=== PATIENT | male | born 1990 | race Caucasian/White ===

== ENCOUNTER 2017-05-26 04:18 | Emergency (ER) | payer SELFPAY ==
[~2017-05-26] VITALS: Ht 180.3 cm; Wt 74.8 kg
[~2017-05-26 04:18] MED LIST: IBU800 M1 PO; VIBRAMYCIN100 MG PO; ZOFRAN ODT4 MG SL
[2017-05-26] MEDS ORDERED: CLINDAMYCIN HC300 MG PO (04:46)
[2017-05-26] MEDS ORDERED: Motrin,Rufen800 MG PO (04:46)
== END 2017-05-26 05:14 | disposition home or self-care (01) ==
LOC: ED 04:18
DX: K02.9 Dental caries, unspecified (principal); K04.01 Reversible pulpitis; Z79.899 Other long term (current) drug therapy

== ENCOUNTER 2017-12-28 15:00 | Emergency (ER) | payer SELFPAY ==
[~2017-12-28] VITALS: Ht 182.8 cm; Wt 81.6 kg
[~2017-12-28 15:00] MED LIST changes: +CLINDAMYCIN HC300 MG PO; +Motrin,Rufen800 MG PO
[2017-12-28] MEDS ORDERED: CLINDAMYCIN HC300 MG PO (15:22)
[2017-12-28] MEDS ORDERED: NAPROSYN500 MG PO (15:24)
== END 2017-12-28 15:33 | disposition home or self-care (01) ==
LOC: ED 15:00
DX: K02.9 Dental caries, unspecified (principal); Z79.1 Long term (current) use of non-steroidal anti-inflammatories (NSAID)

== ENCOUNTER 2019-02-18 19:49 | Emergency (ER) | payer SELFPAY ==
[~2019-02-18] VITALS: Ht 180.3 cm; Wt 72.6 kg
[~2019-02-18 19:49] MED LIST changes: +NAPROSYN500 MG PO
[2019-02-18] MEDS ORDERED: CLINDAMYCIN HC300 MG PO (22:27)
[2019-02-18] MEDS ORDERED: KETOROLAC10 MG PO (22:27)
== END 2019-02-18 22:38 | disposition home or self-care (01) ==
LOC: ED 19:49
DX: K12.2 Cellulitis and abscess of mouth (principal); K08.89 Other specified disorders of teeth and supporting structures; Z79.899 Other long term (current) drug therapy; Z79.2 Long term (current) use of antibiotics

== ENCOUNTER 2024-05-01 17:06 | Inpatient (IN) | payer MEDICAID ==
[~2024-05-01] VITALS: Ht 180.3 cm; Wt 58.6 kg
[~2024-05-01 17:06] MED LIST changes: +KETOROLAC10 MG PO
[2024-05-01 17:23] VITALS: BP 134/81
[2024-05-01 17:50] LABS: BASO # 0.3 10*3/uL (0.0-0.1); BASO % 2.4 % (0.0-1.0); EOS # 1.6 10*3/uL (0.0-0.4); EOS % 13.5 % (1.0-4.0); HEMATOCRIT 48.2 % (42.0-52.0); MEAN CELL VOLUME 89.8 fl (80.0-94.0); MEAN CORPUSCULAR HGB 29.2 pg (27.0-31.0); MEAN CORPUSCULAR HGB CONC 32.6 g/dl (33.0-37.0); MEAN PLATELET VOLUME 9.2 fl (9.6-12.3); MONO # 1.1 10*3/uL (0.1-1.0); MONO % 9.2 % (3.0-9.0); NEUT # 5.6 10*3/uL (2.3-7.9); NEUT % 48.6 % (47.0-73.0); PLATELET COUNT AUTOMATED 307 10*3/uL (130-400); RED BLOOD COUNT 5.37 10*6/uL (4.50-5.90); RED CELL DISTRI WIDTH 12.8 % (0-14.5); WHITE BLOOD COUNT 11.5 10*3/uL (4.8-10.8)
[2024-05-01 18:09] LABS: BUN 12 mg/dl (9-23); CHLORIDE 100 mmol/L (98-107); POTASSIUM 4.2 mmol/L (3.4-5.1)
[2024-05-01] MEDS ORDERED: IOHEXOL 350 MG/ML 100 ML VIAL IV ONE (18:30)
[2024-05-01] MEDS ORDERED: SODIUM CHLORIDE 0.9% 100 ML BAG IV ONE (18:30)
[2024-05-01] MEDS ORDERED: Albuterol Sulf/Ipratropium 3 ML VIAL NEB ONE (18:45)
[2024-05-01 19:43] LABS: BILIRUBIN Negative (Negative); BLOOD Negative (Negative); CLARITY Turbid (Clear); COLOR Yellow (Yellow); GLUCOSE Negative (Negative); KETONE Negative (Negative); LEUKO ESTERASE Negative (Negative); NITRITE Negative (Negative); UROBILINOGEN 0.2 E.U./dl (0.0-1.0)
[2024-05-01 19:53] LABS: BACTERIA 1+
[2024-05-01] MEDS ORDERED: AZITHROMYCIN 250 ML IV ONE (21:40)
[2024-05-01] MEDS ORDERED: cefTRIAXone Sodium 1 GM/10 ML SYR IV ONE (21:40)
[2024-05-01] MEDS ORDERED: TEMAZEPAM 15 MG CAP PO PRN (22:10)
[2024-05-01] MEDS ORDERED: methylPREDNISolone sod succ 125 MG VIAL IV ONE (22:15)
[2024-05-01] MEDS ORDERED: Albuterol Sulf/Ipratropium 3 ML VIAL NEB SCH (22:15)
[2024-05-01 22:17] VITALS: BP 142/90
[2024-05-01] MEDS ORDERED: Nicotine 21 MG PATCH T SCH (22:35)
[2024-05-02 00:10] VITALS: BP 119/94
[2024-05-02] MEDS ORDERED: MAGNESIUM SULFATE 50 ML IV ONE (00:40)
[2024-05-02 06:09] LABS: BASO % 0.8 % (0.0-1.0); EOS % 0.4 % (1.0-4.0); HEMATOCRIT 47.2 % (42.0-52.0); MEAN CELL VOLUME 88.9 fl (80.0-94.0); MEAN CORPUSCULAR HGB CONC 32.6 g/dl (33.0-37.0); MEAN PLATELET VOLUME 9.6 fl (9.6-12.3); MONO # 0.1 10*3/uL (0.1-1.0); NEUT % 83.3 % (47.0-73.0); PLATELET COUNT AUTOMATED 291 10*3/uL (130-400); RED BLOOD COUNT 5.31 10*6/uL (4.50-5.90); RED CELL DISTRI WIDTH 12.8 % (0-14.5); WHITE BLOOD COUNT 4.8 10*3/uL (4.8-10.8)
[2024-05-02 06:11] LABS: ACT PARTIAL THROMBO TIME 34.8 SECONDS (20.0-32.1)
[2024-05-02 06:16] LABS: ALKALINE PHOSPHATASE 100 U/L (46-116); BUN 13 mg/dl (9-23); CHLORIDE 100 mmol/L (98-107); CHOLESTEROL 121 mg/dL (<200); FREE T4 1.33 ng/dl (0.89-1.76); LDL CHOLESTEROL 63 mg/dL (9-159); POTASSIUM 4.1 mmol/L (3.4-5.1); SGPT/ALT 20 U/L (5-49); TOTAL PROTEIN 7.2 gm/dL (6.0-8.0); TRIGLYCERIDES 43 mg/dl (<150)
[2024-05-02 06:26] LABS: VITAMIN D, 25-HYDROXY 44.3 ng/mL (30-100)
[2024-05-02 08:00] VITALS: BP 118/77
[2024-05-02] MEDS ORDERED: methylPREDNISolone sod succ 40 MG VIAL IV SCH ×2 (10:00→22:00)
[2024-05-02] MEDS ORDERED: methylPREDNISolone sod succ 40 MG IV SCH (10:00)
[2024-05-02] MEDS ORDERED: Enoxaparin Sodium 40 MG/0.4 ML SYR SC SCH (10:00)
[2024-05-02 12:00] VITALS: BP 131/82
[2024-05-02 16:00] VITALS: BP 123/76
[2024-05-02 20:00] VITALS: BP 114/82
[2024-05-02] MEDS ORDERED: AZITHROMYCIN 250 ML IV SCH (21:00)
[2024-05-02] MEDS ORDERED: hydrOXYzine 50 MG CAP PO PRN (21:10)
[2024-05-02] MEDS ORDERED: diphenhydrAMINE hydrochloride 50 MG/ML VIAL IV PRN (21:10)
[2024-05-02] MEDS ORDERED: METHOCARBAMOL 750 MG TAB PO PRN (21:10)
[2024-05-02] MEDS ORDERED: rOPINIRole Hydrochloride 0.25 MG TAB PO PRN (21:10)
[2024-05-02] MEDS ORDERED: diazePAM 10 MG/2 ML SYR IV PRN (21:10)
[2024-05-02 21:15] VITALS: BP 118/74
[2024-05-02] MEDS ORDERED: Buprenorphine Hydrochloride 2 MG TAB SL SCH (22:00)
[2024-05-02] MEDS ORDERED: cefTRIAXone Sodium 1 GM in SYRINGE INFUSION 10 ML IV SCH (22:00)
[2024-05-03] VITALS: BP 120/62
[2024-05-03 05:22] LABS: BUN 12 mg/dl (9-23); CHLORIDE 103 mmol/L (98-107); POTASSIUM 4.4 mmol/L (3.4-5.1)
[2024-05-03 06:23] LABS: BASO % 0.3 % (0.0-1.0); HEMATOCRIT 42.3 % (42.0-52.0); MEAN CELL VOLUME 88.3 fl (80.0-94.0); MEAN CORPUSCULAR HGB 29.2 pg (27.0-31.0); MEAN CORPUSCULAR HGB CONC 33.1 g/dl (33.0-37.0); MEAN PLATELET VOLUME 9.6 fl (9.6-12.3); MONO # 0.5 10*3/uL (0.1-1.0); MONO % 5.4 % (3.0-9.0); NEUT # 7.3 10*3/uL (2.3-7.9); NEUT % 80.3 % (47.0-73.0); PLATELET COUNT AUTOMATED 273 10*3/uL (130-400); RED BLOOD COUNT 4.79 10*6/uL (4.50-5.90); WHITE BLOOD COUNT 9.1 10*3/uL (4.8-10.8)
[2024-05-03 08:00] VITALS: BP 113/59
[2024-05-03] MEDS ORDERED: LORazepam 1 MG TAB PO ONE (09:10)
[2024-05-03] MEDS ORDERED: diazePAM 10 MG/2 ML SYR IV ONE (10:40)
[2024-05-03 12:00] VITALS: BP 118/82
[2024-05-03] MEDS ORDERED: LORazepam 1 MG TAB PO SCH (12:00)
[2024-05-03] MEDS ORDERED: Buprenorphine Hydrochloride 2 MG TAB SL SCH (22:00)
[2024-05-04] MEDS ORDERED: LORazepam 1 MG TAB PO SCH (14:00)
[2024-05-05] MEDS ORDERED: Buprenorphine Hydrochloride 2 MG TAB SL SCH (02:00)
[2024-05-05] MEDS ORDERED: LORazepam 1 MG TAB PO PRN (16:00)
== END 2024-05-03 13:50 | disposition left against medical advice (07) | DRG 917 ==
LOC: ED 17:06 → EDHOLD 21:39 → ICCU 21:39 → 5E 23:19 → ICCU 05-02 21:08
PROVIDERS: Nurse Practitioner Family; Student in an Organized Health Care Education/Training Program; ADMIT Internal Medicine; ATTEND Internal Medicine
DX: T58.94XA Toxic effect of carbon monoxide from unspecified source, undetermined, initial encounter (principal); J96.01 Acute respiratory failure with hypoxia; J44.1 Chronic obstructive pulmonary disease with (acute) exacerbation; F13.939 Sedative, hypnotic or anxiolytic use, unspecified with withdrawal, unspecified; F11.93 Opioid use, unspecified with withdrawal; D72.10 Eosinophilia, unspecified; F17.210 Nicotine dependence, cigarettes, uncomplicated; F19.10 Other psychoactive substance abuse, uncomplicated; Z53.29 Procedure and treatment not carried out because of patient's decision for other reasons; Z79.899 Other long term (current) drug therapy; Z79.01 Long term (current) use of anticoagulants; Z79.2 Long term (current) use of antibiotics; Z81.2 Family history of tobacco abuse and dependence; Z82.49 Family history of ischemic heart disease and other diseases of the circulatory system; Z83.3 Family history of diabetes mellitus; Z71.6 Tobacco abuse counseling